=== PATIENT | female | born 1960 | race Asian ===

== ENCOUNTER 2017-05-27 18:11 | Emergency (ER) | payer OTHER ==
[~2017-05-27] VITALS: Ht 167.6 cm; Wt 67.1 kg
[~2017-05-27 18:11] MED LIST: BENTYL10 MG ORAL; CEPHALEXIN500 MG ORAL; IBUPROFEN600 MG ORAL; PHENERGAN SUPP25 MG RECTAL; TAMIFLU75 MG ORAL; ZOFRAN4 MG ORAL
[2017-05-27] MEDS ORDERED: BP pill (18:26)
[2017-05-27] MEDS ORDERED: ASPIR 8181 MG ORAL (18:27)
[2017-05-27] MEDS ORDERED: Norco 5mg/325mg tab ORAL ONE (18:45)
[2017-05-27] MEDS ORDERED: IBUPROFEN600 MG ORAL (19:26)
[2017-05-27 19:30] VITALS: BP 210/101
--- NOTE | 2017-05-27 22:33 | Emergency Room Report ---
History of Present Illness General Chief Complaint: Pain Source: Patient Present Illness HPI The patient is a 57-year-old female presenting for nasal pain after a work- related injury yesterday. She states that a metal bowl fell onto her nose from a shelf. The pain has continued and is now a 3/10 dull ache, does not radiate. Worse with touch. This bruising. She denies any bleeding. She denies other symptoms including KLINE, dizziness, N, V, blurred vision, CP, SOB Allergies: Coded Allergies: No Known Allergies (Unverified , 03/05/15) Patient History Past Medical History: see triage record Pertinent Family History: none Reviewed Nursing Documentation: PMH: Agreed, PSxH: Agreed Nursing Documentation-PMH Hx Hypertension: Yes Review of Systems All Other Systems: negative except mentioned in HPI Physical Exam Vital Signs Date Time Temp Pulse Resp B/P (MAP) Pulse Ox O2 Delivery O2 Flow Rate FiO2 05/27/17 18:21 98.2 83 16 237/102 99 Room Air Sp02 EP Interpretation: reviewed, normal General Appearance: no apparent distress, alert, GCS 15, non-toxic Head: normocephalic, atraumatic Eyes: bilateral eye normal inspection, bilateral eye PERRL ENT: hearing grossly normal, no angioedema, normal voice, uvula midline, other - Ecchymosis over nasal bridge Neck: full range of motion, supple/symm/no masses Musculoskeletal: back normal, gait/station normal, normal range of motion Neurologic: alert, oriented x3, responsive, motor strength/tone normal, sensory intact, speech normal Psychiatric: judgement/insight normal, memory normal, mood/affect normal, no suicidal/homicidal ideation Skin: warm/dry, well hydrated Medical Decision Making PA Attestation Dr. Boudreaux is my supervising physician. Patient management was discussed with my supervising physician Diagnostic Impression: Primary Impression: Hypertension Qualified Codes: I10 - Essential (primary) hypertension Additional Impression: Nasal contusion Qualified Codes: S00.33XA - Contusion of nose, initial encounter ER Course The patient is a 57-year-old female presenting for nasal pain after a work- related injury yesterday Ddx considered include but not limited to sprain/strain, fracture, contusion, deviation, septal hematoma PE: Pt has significant HTN. NAD No raccoon eyes or easley sign Ecchymosis over nasal bridge. No septal hematoma. No bleeding CT facial bones show no fracture. The patient states that she takes HTN meds once a day but is unsure of name. She states she took it today. She is given one does of anti-HTN medication in the ED and will be DC'ed home. She is asymptomatic. She needs to see her PMD as soon a possible for HTN control. CT/MRI/US Diagnostic Results CT/MRI/US Diagnostic Results : Imaging Test Ordered: CT facial bones Impression No acute findings Last Vital Signs Date Time Temp Pulse Resp B/P (MAP) Pulse Ox O2 Delivery O2 Flow Rate FiO2 05/27/17 19:22 227/88 05/27/17 18:21 98.2 83 16 99 Room Air Status: improved Disposition: HOME, SELF-CARE Condition: Improved Scripts Ibuprofen* (MOTRIN*) 600 Mg Tablet 600 MG ORAL Q8H Y for For Pain, #30 TAB 0 Refills Prov: DANNY TRIPP 05/27/17 Referrals: NON PHYSICIAN (PCP) Patient Instructions: Contusion, Hypertension Additional Instructions: I discussed my findings with the patient. All questions and concerns have been answered. Treatment and medication compliance have been addressed. I advised the patient that they need to follow up with PMD in 3-5 days. Return to ED if symptoms worsen, new symptoms arise, or if needed for any reason. Patient verbalized understanding of discharge instructions. DANNY TRIPP May 27, 2017 22:33
--- NOTE | 2017-05-28 10:39 | Diagnostic Imaging Report ---
Indication: Trauma. Facial pain Technique: Continuous helical transaxial imaging of the maxillofacial structures obtained without intravenous contrast administration. Coronal 2-D reformats were also obtained. Study obtained in a Siemens sensation [address] Automatic Exposure Control was utilized. Total Dose length Product (DLP): 556.[address] Dose Index Volume (CTDIvol): 28.19 mGy Comparison: None Findings: There is no evidence of an acute fracture. Paranasal sinuses and mastoids are clear. Soft tissues are unremarkable. Orbits appear normal. There is no proptosis or evidence of retrobulbar hemorrhage. The globes appear symmetric and normal. There is moderate sclerosis of the mastoid regions bilaterally with little to no pneumatization. This is likely on the basis of chronic mastoiditis. IMPRESSION: No acute injury. Chronic bilateral mastoiditis The CT scanner at [facility] is accredited by the [employer] and the scans are performed using dose optimization techniques as appropriate to a performed exam including Automatic Exposure control.
== END 2017-05-27 19:30 | disposition home or self-care (01) ==
LOC: EMR 18:45
DX: S00.33XA Contusion of nose, initial encounter (principal); I10 Essential (primary) hypertension; W20.8XXA Other cause of strike by thrown, projected or falling object, initial encounter; Y92.9 Unspecified place or not applicable; Y99.0 Civilian activity done for income or pay
CPT/HCPCS: 70486; 99284